=== PATIENT | male | born 1990 | race Caucasian/White ===

== ENCOUNTER 2017-03-08 13:13 | Emergency (ER) | payer BC, OTHER ==
[2017-03-08 13:17] VITALS: BP 127/70; TEMP 98.6
--- NOTE | 2017-03-08 13:38 | EDPHY ---
H & P Stated Complaint: R shoulder injury HPI/ROS: HPI CHIEF COMPLAINT: Right shoulder pain The patient very pleasant 26-year-old male, who presents emergency room with ongoing right shoulder pain. 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 States over the past few months has been having some right shoulder pain. He is followed at [facility] he tells me that the pain has progressively gotten worse. Limiting his range of motion of his right shoulder. He is unclear if he has a rotator cuff injury. He presents emergency room after he left work today due to ongoing right shoulder pain. No direct trauma. He states he has pain with range of motion. 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 Exam Constitutional triage nursing summary reviewed, vital signs reviewed, awake/ alert. Eyes normal conjunctivae and sclera, EOMI, PERRLA. HENT normal inspection, atraumatic, moist mucus membranes, no epistaxis, neck supple/ no meningismus, no raccoon eyes. Respiratory clear to auscultation bilaterally, normal breath sounds, no respiratory distress, no wheezing. Cardiovascular rate normal, regular rhythm, no murmur, no edema, distal pulses normal. Gastrointestinal soft, non-tender, no rebound, no guarding, normal bowel sounds, no distension, no pulsatile mass. Genitourinary no CVA tenderness. Musculoskeletal right arm: Neurovascular intact good cap refill, good radial pulse. Full range of motion of the right shoulder. Axillary nerve intact. With supination pronation of the wrist he has right shoulder pain possible indicating a rotator cuff injury. no midline vertebral tenderness, full range of motion, no calf swelling, no tenderness of extremities, no meningismus, good pulses, neurovascularly intact. Skin pink, warm, & dry, no rash, skin atraumatic. Neurologic awake, alert and oriented x 3, AAOx3, moves all 4 extremities equally, motor intact, sensory intact, CN II-XII intact, normal cerebellar, normal vision, normal speech. Psychiatric normal mood/affect. Heme/Lymph/Immune no lymphadenopathy. Differential Diagnosis: Includes but is not limited to in a particular order rotator cuff injury, partial rotator cuff tear, tendinitis, musculoskeletal strain, doubt fracture Medical Decision Making: Plan for this patient x-ray right shoulder, ibuprofen for pain control ice pack. Re-evaluation: I explained to the patient that if the x-ray is unrevealing I recommend anti- inflammatory pain medicine, ice pack, reducing stress at work on his shoulder F all possible. Follow up with Orthopedics. ED x-ray right shoulder: Negative for acute abnormality. Image interpreted myself. Source: Patient - Personal History Current Tetanus/Diphtheria Vaccine: Yes Current Tetanus Diphtheria and Acellular Pertussis (TDAP): Yes - Medical/Surgical History Hx Asthma: No Hx Chronic Respiratory Disease: No Hx Diabetes: No Hx Cardiac Disease: No Hx Renal Disease: No Hx Cirrhosis: No Hx Alcoholism: No Hx HIV/AIDS: No Hx Splenectomy or Spleen Trauma: No Other PMH: fx r elbow/r inguinal hernia repair/tonsillectomy - Social History Smoking Status: Current every day smoker Constitutional: Initial Vital Signs Temperature (C) 37 C 03/08/17 13:15 Heart Rate 63 03/08/17 13:15 Respiratory Rate 16 03/08/17 13:15 Blood Pressure 127/70 H 03/08/17 13:15 O2 Sat (%) 97 03/08/17 13:15 O2 Delivery Mode Room Air Allergies/Adverse Reactions: No Known Allergies Allergy (Unverified 04/26/16 14:13) Home Medications: Medication Instructions Recorded Cephalexin [Keflex] 500 mg PO Q6H #28 cap 04/26/16 Hydrocodone/APAP 5/325 [[place] 1 - 2 tab PO Q4H PRN #14 tab 04/26/16 5/325] Ibuprofen [Motrin (*)] 800 mg PO Q6-8PRN #30 tab 04/26/16 Medical Decision Making - Diagnostics Imaging Results: Imaging Impressions Shoulder X-Ray 03/08/17 13:17 Impression: No evidence for acute osseous abnormality right shoulder. - Data Points Medications Given: Discontinued Medications Ibuprofen (Motrin) 800 mg PO EDNOW ONE Stop: 03/08/17 13:43 Last Admin: 03/08/17 13:55 Dose: 800 mg Departure - Departure Disposition: Home, Routine, Self-Care Clinical Impression: Strain of shoulder, right Qualifiers: Encounter type: initial encounter Qualified Code(s): S46.911A - Strain of unspecified muscle, fascia and tendon at shoulder and upper arm level, right arm , initial encounter Condition: Good Instructions: Rotator Cuff Injury (ED) Referrals: [facility],. [Primary Care Provider] - As per Instructions Johnathan Denton MD [Medical Doctor] - As per Instructions
[2017-03-08] MEDS ORDERED: IBUPROFEN 200 MG TAB PO ONE ×2 (13:42→13:53)
[2017-03-08 14:25] VITALS: PULSE 61; RESP 18; O2SAT 95
== END 2017-03-08 14:30 | disposition home or self-care (01) ==
DX: S46.911A Strain of unspecified muscle, fascia and tendon at shoulder and upper arm level, right arm, initial encounter (principal); F17.200 Nicotine dependence, unspecified, uncomplicated; X58.XXXA Exposure to other specified factors, initial encounter; Y93.39 Activity, other involving climbing, rappelling and jumping off